=== PATIENT | male | born 1955 | race Caucasian/White ===

== ENCOUNTER → 2024-05-24 08:15 | Outpatient (REF) | payer MEDICARE, OTHER, SELFPAY | LOC: RCS 08:15 | PROVIDERS: ATTENDING PHYSICIAN Family Medicine | DX: R07.9 Chest pain, unspecified (principal) | CPT/HCPCS: 93306 ==

== ENCOUNTER → 2024-05-26 07:19 | Outpatient (REF) | payer MEDICARE, OTHER, SELFPAY | LOC: RCS 07:19 | PROVIDERS: ATTENDING PHYSICIAN Family Medicine | DX: R07.9 Chest pain, unspecified (principal); I25.10 Atherosclerotic heart disease of native coronary artery without angina pectoris | CPT/HCPCS: 78452; 93017; A9500 ==

== ENCOUNTER 2024-06-03 09:42 | Day surgery (SDC) | payer MEDICARE, OTHER, SELFPAY ==
[2024-06-03] VITALS (19 sets, daily range): BP systolic 113–142; BP diastolic 64–83; BMI 26.8
[2024-06-03 10:15] LABS: Mean Corp Hgb Conc. 33.3 g/dL (33.0-37.0); Mean Corpuscular Hgb 27.5 pg (27.0-31.0); Mean Corpuscular Volume 82.6 fL (80.0-94.0); Mean Platelet Volume 10.7 fL (7.4-10.4); Platelet Count 251 10^3/uL (130-400); Red Blood Cell Count 5.45 10^6/uL (4.70-6.10); Red Cell Dist. Width 15.2 % (11.5-14.5); White Blood Cell Count 8.3 10^3/uL (4.8-10.8)
[2024-06-03] MEDS: LOW STRENGTH ASPIRIN 81 MG PO (10:21)
[2024-06-03] MEDS: NSS 233 ML IV (10:22)
[2024-06-03 10:26] LABS: ALT (SGPT) 27 U/L (0-50); AST (SGOT) 25 U/L (17-59); Albumin 4.9 g/dl (3.5-5.0); Alkaline Phosphatase 78 U/L (38-126); Blood Urea Nitrogen 23 mg/dl (9-20); Calcium 9.8 mg/dl (8.4-10.2); Carbon Dioxide 24 mmol/L (22-30); Chloride 102 mmol/L (98-107); Estimated Creatinine Clearance 59 ml/min; Glucose 97 mg/dl (70-99); Potassium 4.5 mmol/L (3.5-5.1); Sodium 141 mmol/L (135-145); Total Bilirubin 0.6 mg/dl (0.2-1.3); Total Protein 7.7 g/dl (6.3-8.2); eGFR > 60.00
--- NOTE | 2024-06-03 13:48 | ITS.CL.CATH ---
Resident Assistant [facility] - Catheterization
Cardiac Catheterization
Procedure Report:
CARDIAC CATHETERIZATION REPORT
Date of Procedure: 06/03/2024
Referring: Costa Guillen MD
Indication: Progressive angina (lifestyle-limiting). Abnormal stress test with chest pain limiting exercise
�
HEMODYNAMIC DATA
AO: 128/71
LV: 128/12
�
LEFT VENTRICULOGRAPHY: Normal left ventricular wall motion with EF 58%
�
CORONARY ANGIOGRAPHY
Dominance: Right
Left Main: Normal
LAD: Severe proximal LAD calcification. There is mild ostial stenosis. There is 80% proximal LAD stenosis spanning the takeoff of the moderate to large D1 which has 40% ostial stenosis. There is 90% mid LAD stenosis 15 mm distal to the takeoff of
D1. The remainder of the LAD system has trivial luminal disease.
Circumflex: There is a small to medium sized ramus intermedius branch with no significant disease. The circumflex system has mild luminal irregularities without areas of significant focal stenosis
RCA: The RCA is dominant with moderate calcification. There is a 40% mid RCA stenosis and otherwise trivial luminal disease. The RCA terminates with a small PDA and a large posterolateral system
Angioplasty: At the conclusion the diagnostic study we proceeded with intervention to treat the high-grade proximal and mid LAD disease. Heparin was used for anticoagulation. Plavix 600 mg was administered the procedure conclusion. A 6 [place] EBU
3.75 guide catheter was used. A BMW wire was passed into the apical LAD. We attempted unsuccessfully to pass a second BMW wire into the medium to large first diagonal branch to protect it from plaque shift occlusion. The extremely upsloping
takeoff from the LAD could not be successfully negotiated with the BMW wire. We also tried a Fielder XT wire unsuccessfully. At this point I felt that further attempts could lead to dissection which would defeat the purpose of trying to protect
this branch vessel. Balloon angioplasty was accomplished segmentally to treat the mid LAD then proximal LAD lesions with inflations to 10 monica using a 2.5 x 15 Euphora balloon. We then placed a 3.5 x 34 [place] KRANTHI to cover the proximal and
mid LAD disease. Stent deployment was accomplished at 14 monica and the entire segment postdilated with a 3.5 NC Euphora to 17 monica. The final angiographic result was outstanding with no residual stenosis and no compromise in flow to the first
diagonal branch.
�
Closure Device: None-the procedure was performed via the right radial artery. The Sree's test was normal prior to the procedure.
�
Radiation (mGy): 342
DAP (cm2.Gy): 23.1
Fluoroscopy time: 11.9 minutes
�
CONCLUSIONS
1:�Normal left ventricular function with EF 58%
2:�Severe single-vessel CAD as described involving the proximal and mid LAD segments
3. Successful stenting of 80% proximal and 90% mid LAD stenoses using 3.5 x 34 [place] KRANTHI with outstanding angiographic result
4. Recommend dual antiplatelet therapy for 12 months then lifelong uninterrupted aspirin monotherapy
5. Following discussion with the contestant coordinator at [facility], he will begin rosuvastatin 20 mg daily. We will arrange lipid panel and LFTs to be done in 6 weeks
6. The extreme importance of compliance with uninterrupted dual antiplatelet therapy has been discussed with the patient and his who is a retired nurse
�
�
Copy to: Teresa Reyes DO, Costa Guillen MD
�
Costa Guillen MD, [facility], [facility]
[2024-06-03] MEDS: NSS 1000 IV (14:02)
--- NOTE | 2024-06-03 17:01 | W.PN.UPDATE ---
Update Note
Progress Note Update
69 yo WM s/p PCI LAD x 1 KRANTHI (same day). He denies cp, sob, pedro diet, voiding, amb w/o dizziness, Rad site c/d/i, good pulse, EKG SB 1 deg AVB with occ PAC's. He will continue DAPT ASA/Plavix. Cardiac rehab c/s. He will f/u [facility] in 2 weeks and
continue cardiac care with Dr. Sifuentes. He is for d/c home after 615p if site stable.
CONCLUSIONS
1:�Normal left ventricular function with EF 58%
2:�Severe single-vessel CAD as described involving the proximal and mid LAD segments
3. Successful stenting of 80% proximal and 90% mid LAD stenoses using 3.5 x 34 [place] KRANTHI with outstanding angiographic result
4. Recommend dual antiplatelet therapy for 12 months then lifelong uninterrupted aspirin monotherapy
5. Following discussion with the business support coordinator at [facility], he will begin rosuvastatin 20 mg daily. We will arrange lipid panel and LFTs to be done in 6 weeks
6. The extreme importance of compliance with uninterrupted dual antiplatelet therapy has been discussed with the patient and his who is a retired nurse
�
�
Copy to: Teresa Reyes DO, Costa Guillen MD
[2024-06-04 09:39] LABS: ACT-LR - POC > 397 Seconds (116-155)
== END 2024-06-03 16:15 | disposition home or self-care (01) ==
LOC: CATH 09:42
PROVIDERS: ATTENDING PHYSICIAN Internal Medicine Cardiovascular Disease; FAMILY PHYSICIAN Family Medicine
DX: I25.110 Atherosclerotic heart disease of native coronary artery with unstable angina pectoris (principal); R94.39 Abnormal result of other cardiovascular function study; Z87.19 Personal history of other diseases of the digestive system; Z94.4 Liver transplant status; Z79.82 Long term (current) use of aspirin; Z79.02 Long term (current) use of antithrombotics/antiplatelets
CPT/HCPCS: C1769; C1725; C1894; 80053; 85027; 85347; 93005; 93458; C1874; C9600; Q9967